=== PATIENT | female | born 1940 | race Caucasian/White ===

== ENCOUNTER 2025-04-19 12:19 | Emergency (ER) | payer MEDICARE, OTHER, SELFPAY ==
[2025-04-19] VITALS (8 sets, daily range): BP systolic 141–202; BP diastolic 52–92; PULSE 73–79; BMI 29.3
[2025-04-19 12:38] LABS: % Basophils 1.2 % (0-2); % Lymphocytes 23.3 % (20.5-51.1); % Monocytes 14.1 % (1.7-9.3); % Neutrophils 58.4 % (42.2-75.2); Absolute Basophils 0.1 10^3/uL (0-0.2); Absolute Eosinophils 0.1 10^3/uL (0-0.7); Absolute Immature Granulocytes 0.1 10^3/uL (0-0.05); Absolute Lymphocytes 1.4 10^3/uL (1.2-3.4); Absolute Monocytes 0.9 10^3/uL (0.1-0.6); Absolute Neutrophils 3.5 10^3/uL (1.4-6.5); Hematocrit 37.2 % (37.0-47.0); Hemoglobin 12.5 g/dL (12.0-16.0); Mean Corp Hgb Conc. 33.6 g/dL (33.0-37.0); Mean Corpuscular Hgb 32.8 pg (27.0-31.0); Mean Corpuscular Volume 97.6 fL (81.0-99.0); Mean Platelet Volume 11.2 fL (7.4-10.4); Nucleated Red Blood Cells % 0.5 %; Platelet Count 236 10^3/uL (130-400); Red Blood Cell Count 3.81 10^6/uL (4.20-5.40); Red Cell Dist. Width 18.6 % (11.5-14.5)
[2025-04-19 13:07] LABS: ALT (SGPT) 19 U/L (0-35); AST (SGOT) 22 U/L (14-36); Albumin 4.3 g/dl (3.5-5.0); Alkaline Phosphatase 56 U/L (38-126); Blood Urea Nitrogen 22 mg/dl (7-17); Calcium 9.4 mg/dl (8.4-10.2); Carbon Dioxide 27 mmol/L (22-30); Chloride 108 mmol/L (98-107); Estimated Creatinine Clearance 64 ml/min; Glucose 98 mg/dl (70-99); Potassium 4.4 mmol/L (3.5-5.1); Sodium 141 mmol/L (135-145); Total Protein 7.1 g/dl (6.3-8.2); eGFR > 60.00
[2025-04-19 13:17] LABS: Troponin I < 0.012 ng/ml
--- NOTE | 2025-04-19 15:37 | ED.GENMED ---
History of Present Illness
General
Chief Complaint: Fainting Sensation
Source: patient
Exam Limitations: none
Time Seen by Provider: 04/19/25 14:29
Nursing documentation reviewed up to this point in time: agreed with
History of Present Illness
History of Present Illness:
Patient presents to ED secondary to sudden onset of 'lightheadedness' while taking shower this morning around 10 AM. Patient reports waking up at 6:30 AM without any symptoms. Patient had normal breakfast and was taking a shower when the incident
occurred. Denies room spinning sensation like vertigo. Patient was able to complete her shower, get dressed, and get ready for scheduled outing with her family. However, as her symptoms continued, made a decision to come to ED for an evaluation.
At the time of evaluation ED, patient states her symptoms have improved, but not resolved completely. Denies blurry vision. Denies loss of sensation or weakness. Patient does report feeling wobbly when ambulating due to lightheadedness. Denies
chest palpitations. Denies shortness of breath. Denies nausea or vomiting. Denies loss of sensation or weakness. Patient states that she had similar episode approximately 10 years ago, requiring admission to the hospital. Patient was told that
her symptoms were secondary to vasovagal symptoms. Denies recent illness. Denies recent change in diet. Denies recent weight loss. Patient currently does not take any medications daily. However, patient's blood pressure has been elevated in the
past, and was prescribed HCTZ, which she is not taking.
Review of Systems
Review of Systems
Allergies reviewed?: Yes
All Other Systems: ROS reviewed and negative except as documented in HPI and ROS
Constitutional: Reports no symptoms
EENT: Reports no symptoms
Respiratory: Reports no symptoms
Cardiac: Reports no symptoms; Denies palpitations or syncope
ABD/GI: Reports no symptoms
Musculoskeletal: Reports no symptoms
Skin: Reports no symptoms
Neurological: Reports dizzy; Denies headache or weakness
Phy Exam
Physical Exam
Physical Exam:
Physical Exam
General: no apparent distress, not acutely ill. afebrile.
Head: nc/at. eomi. no nystagmus.
Neck: supple. no meningeal signs.
Heart: s1/s2 regular rate and rhythm
Lungs: no acute respiratory distress. clear bilaterally
Abdomen: normal bowel sounds. not tender.
Neuro: alert and oriented. no focal neurological deficits
Skin: no rash
Psychiatric: well kept. interactive and cooperative
Extremities: no edema. no calf tenderness.
Course
Orders/Labs/Results
Orders:
Orders
04/19/25 12:25
EKG [Electrocardiogram (*1)] Urgent
Reason for Study: Vertigo / Dizzy
EKG- Treatment ONCE
04/19/25 12:31
CBC/With Diff [Complete Blood Count/With Diff] Urgent
Comprehensive Metabolic Panel Urgent
Troponin I Urgent
04/19/25 14:54
CT Head W/o Iv Contrast Urgent
Comment:
Reason For Exam: dizziness with hypertension
04/19/25 16:15
0.9% Sodium Chloride 500 ml [Nss] 500 ml IV BOLUS
04/19/25 17:03
UA Reflex to Culture [Urinalysis Reflex To Culture] Urgent
Date Specimen was Collected: 04/19/25
Time Specimen was Collected: 16:57
Abnormal Lab Results
04/19/25
12:31
RBC 3.81 L 10^6/uL
(4.20-5.40)
MCH 32.8 H pg
(27.0-31.0)
RDW 18.6 H %
(11.5-14.5)
MPV 11.2 H fL
(7.4-10.4)
Abs Immat Gran (auto) 0.1 H 10^3/uL
(0-0.05)
Absolute Monos (auto) 0.9 H 10^3/uL
(0.1-0.6)
Immature Gran % 1.0 H %
(0-0.5)
Monocytes % 14.1 H %
(1.7-9.3)
Chloride 108 H mmol/L
(98-107)
BUN 22 H mg/dl
(7-17)
04/19/25 12:31
04/19/25 12:31
Vital Signs
Initial and Last Documented VS:
Initial Vital Signs
Temp Pulse Resp BP Pulse Ox
98.4 F 74 18 202/92 97
04/19/25 12:21 04/19/25 12:21 04/19/25 12:21 04/19/25 12:21 04/19/25 12:21
Last Documented Vital Signs
Temp Pulse Resp BP Pulse Ox
98.4 F 69 20 141/52 95
04/19/25 12:21 04/19/25 17:45 04/19/25 17:45 04/19/25 17:06 04/19/25 16:30
MDM/Problems Addressed
MDM/Problems Addressed:
Initial hypertension improved gradually during observation in the ED, correlating with gradual improvement in patient's overall symptoms. Patient with an unremarkable workup in ED, including blood work and CT head, and EKG. Incidental CT head
finding discussed with patient and her daughter, to be discussed with her primary care physician. Patient's presenting symptoms today, nonspecific, will include potential dehydration, arrhythmia, less likely TIA. At this time, patient and daughter
feel comfortable going home and will follow-up closely with her primary care physician, with instructions to return to ED with recurrent symptoms.
*Pulse Oximetry
SaO2: 97
Oxygen Mode of Delivery: Room air
Patient hypoxic: no
*EKG
Interpreted by ED Provider?: Yes
EKG Intrepretation Date: 04/19/25
Heart Rate: 68
Rate: normal
Rhythm: sinus
[place]: normal axis
Interval: normal interval
*Critical Care Note
Total Time (30-74mins, 75-104mins- exclusive of procedures): Not Applicable
ED Attending Note
-
Portions of this chart may have been created with voice recognition software.� Occasional wrong word or��sound alike� substitutions may have occurred due to the inherent limitations of voice recognition software.
Discharge Plan
Departure
Patient Disposition: Home (Routine Discharge)
Date of Disposition: 04/19/25
Time of Disposition: 17:15
Patient with high blood pressure during this ER visit?: Yes
Condition: Good
Discharge Problem:
Dizziness, Hypertension
Instructions: High blood pressure in adults, Dizziness in adults - ED discharge instructions
Referrals:
NONE,* [Family Provider, Internal Medicine]
Activity Restrictions/Additional Instructions:
As discussed, please follow-up with your primary care physician for reevaluation, or return to ED with recurrent symptoms. In the meantime, strongly recommend increasing fluid intake at home.
Interventions
Interventions:
*Risk Screen - Suicide Last Done: 04/19/25 12:21
*General Assessment Last Done: 04/19/25 12:21
*Neglect/Abuse Screening Last Done: 04/19/25 12:21
*ED- Fall Risk Assessment Last Done: 04/19/25 13:01
*ED COVID-19 Vaccine History Last Done: 04/19/25 13:01
*Nursing Disposition Last Done: 04/19/25 18:00
ED- Cardiac Assessment Last Done: 04/19/25 13:01
ED- Neurological Assessment Last Done: 04/19/25 13:01
Discharge Date and Time
Discharge Date/Time: 04/19/25 18:00
Print Language: UKRAINIAN
[2025-04-19] MEDS: NSS 500 IV (16:56)
[2025-04-19 17:23] LABS: Urine Albumin Negative (Neg - Trace); Urine Bilirubin Negative (Negative); Urine Character Clear (Clear); Urine Color Yellow; Urine Glucose Negative (Negative); Urine Ketone Negative (Negative); Urine Leukocyte Negative (Negative); Urine Nitrite Negative (Negative); Urine Occult Blood Negative (Negative); Urine Urobilinogen Negative (Neg - 1+)
== END 2025-04-19 18:00 | disposition home or self-care (01) ==
LOC: EMR 12:19
PROVIDERS: Emergency Medicine; EMERGENCY PHYSICIAN Emergency Medicine
DX: R42 Dizziness and giddiness (principal); I10 Essential (primary) hypertension; Z88.1 Allergy status to other antibiotic agents; Z88.5 Allergy status to narcotic agent
CPT/HCPCS: 99284; 96360; 70450; 80053; 81003; 84484; 85025; 93005